=== PATIENT | male | born 1955 | race Caucasian/White ===

== ENCOUNTER 2019-08-28 11:05 | Day surgery (SDC) | payer BC ==
[~2019-08-28] VITALS: Ht 188 cm; Wt 136.7 kg
[2019-08-28] VITALS (10 sets, daily range): BP systolic 127–153; BP diastolic 62–79; PULSE 50–81; TEMP 97.7–98.1
[2019-08-28] MEDS ORDERED: HYDRODIURIL50 MG PO (11:54)
[2019-08-28] MEDS ORDERED: TOPROL XL200 MG PO (11:54)
[2019-08-28] MEDS ORDERED: NORVASC 10MG10 MG PO (11:54)
[2019-08-28] MEDS ORDERED: COZAAR100 MG PO (11:55)
--- NOTE | 2019-08-28 16:30 | NUR ---
Patient is back from surgery. He continues to be numb from the waist down. He is able to move his toes but can not feel them. Urine is dark pink, no clots. CBI flowing slowly. Patient denies pain and nausea. Oriented patient to room. No other changes at this time. Call light within reach.
[2019-08-29 03:51] VITALS: BP 171/68; PULSE 54; TEMP 97.9
--- NOTE | 2019-08-29 04:30 | NUR ---
Patient has rested well throughout the night. CBI running to acevedo catheter to keep drainage pink. CBI running slow at this time. Patient denies pain at this time. Patient tolerating PO fluids. IV to INT. Will continue to monitor.
--- NOTE | 2019-08-29 08:00 | NUR ---
Patient in bed resting. Alert and oriented x 3. Shift assessment complete. Murry to dependent drainage with red-tinged urine in bag. Denies pain at this time. Denies further needs at this time.
[2019-08-29 08:38] VITALS: BP 152/64; PULSE 57; TEMP 97.5
--- NOTE | 2019-08-29 11:02 | NUR ---
JENNIFER met with the patient to discuss discharge plan. The patient lives alone in [place]. He states that his son, Ervin (ph#[phone]), lives three miles away from him. He reports independence with ADLs and does not have any DME. The patient's PCP is Dr. Roosevelt Scanlon and he receives his medications at the [facility] [address] in [place]. He reports no difficulties obtaining his meds. The patient does not have advanced directives in EMR, but he states that he does have them completed. He states that his son, Ervin, is his DPOA-HC. The patient plans to return home upon discharge. No additional needs at this time.
--- NOTE | 2019-08-29 11:12 | NUR ---
First visit from the coding advisor. No needs right now.
--- NOTE | 2019-08-29 12:00 | NUR ---
Patient up to recliner, stand by assist, encouraged increased ambulation.
[2019-08-29 12:55] VITALS: BP 151/66; PULSE 53; TEMP 97.8
[2019-08-29 15:42] VITALS: BP 147/62; PULSE 55; TEMP 97.4
--- NOTE | 2019-08-29 18:12 | NUR ---
Patient has done well throughout the day, has been up to recliner and ambulating. Continues to deny pain. Murry maintained to dependent drainage with clear peach colored urine in bag. CBI infusing at a very slow day. Denies further needs at this time. Will report off to table games shift manager.
[2019-08-29 19:39] VITALS: BP 139/66; PULSE 51; TEMP 97.5
--- NOTE | 2019-08-29 20:00 | NUR ---
Report received. Assumed care for mini shifter. Assessment complete. VS stable. A&Ox3. CBI currently clamped-output light yellow-clear. Denies pain/nausea/shortness of breath. Plan of care discussed for prime and pull of cath in AM. Denies questions or concerns. Call light in reach. Will monitor.
[2019-08-29 23:33] VITALS: BP 136/63; PULSE 51; TEMP 97.8
[2019-08-30 04:14] VITALS: BP 148/72; PULSE 50; TEMP 97.3
--- NOTE | 2019-08-30 05:50 | NUR ---
CBI acevedo cath prime and pulled at this time. Instruction given on voiding and 6 cup routine. CBI remained clamped all shift-output remained light yellow. Denies questions or concerns. Will monitor.
[2019-08-30 07:58] VITALS: BP 146/63; PULSE 58; TEMP 97.4
--- NOTE | 2019-08-30 08:00 | NUR ---
Patient sitting up in recliner, independent in room. Patient voiding clear peach colored urine, working on 6 cup routine. Denies pain at this time. Denies further needs at this time. Will continue to monitor.
[2019-08-30 11:25] VITALS: BP 152/64; PULSE 51; TEMP 97.6
--- NOTE | 2019-08-30 14:20 | NUR ---
Discharge education provided to patient. Educated on follow up appointment and when to call provider. Patient continues to void clear peach colored urine. All questions answered. Minimal needs. INT to left hand discontinued, catheter tip intact. Denies further needs. Patient out by wheelchair with surgical staff.
== END 2019-08-30 14:30 | disposition home or self-care (01) ==
LOC: SDCO 11:05 → SURG 16:30 → SDCO 08-30 14:30
DX: N40.1 Benign prostatic hyperplasia with lower urinary tract symptoms (principal); N13.8 Other obstructive and reflux uropathy; R33.8 Other retention of urine; I10 Essential (primary) hypertension; Z79.899 Other long term (current) drug therapy; E66.9 Obesity, unspecified; Z68.41 Body mass index [BMI] 40.0-44.9, adult
CPT/HCPCS: OP; J0690; J2250; J2704; J7120